=== PATIENT | male | born 1985 | race Caucasian/White ===

== ENCOUNTER → 2020-01-12 | Outpatient (CLI) | payer BC | END | disposition home or self-care (01) | LOC: US 15:01 | PROVIDERS: ATTEND Urology | DX: R22.9 Localized swelling, mass and lump, unspecified (principal); Z80.43 Family history of malignant neoplasm of testis ==

== ENCOUNTER → 2020-01-30 | Outpatient (CLI) | payer BC | END | disposition home or self-care (01) | LOC: CT 10:00 | PROVIDERS: ATTEND Urology | DX: C48.0 Malignant neoplasm of retroperitoneum (principal) ==